=== PATIENT | male | born 1960 | race Caucasian/White ===

== ENCOUNTER 2019-12-02 07:47 | Day surgery (SDC) | payer BC ==
[~2019-12-02 07:47] MED LIST: ACETAMINOPHEN 1,000 MG/100 ML BTL IVPB ONE
[2019-12-02] MEDS ORDERED: RINGERS SOLUTION,LACTATED 1,000 ML IV ONE (08:20)
[2019-12-02] MEDS ORDERED: BUPIVACAINE 0.25% W/EPI MPF 30ML VIAL SQ ONE (09:47)
--- NOTE | 2019-12-03 08:42 | Operative Note ---
DATE OF SURGERY: 12/02/2019 SURGEON: Rg Velarde D.O. REFERRING PHYSICIAN: Asael Richardson M.D. PREOPERATIVE DIAGNOSIS: CHONDROMALACIA OF THE LEFT KNEE. 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 OPERATION: ARTHROSCOPIC CHONDROPLASTY MEDIAL FEMORAL CONDYLE, TROCHLEA AND PATELLA OF THE LEFT KNEE. DESCRIPTION: This 59-year-old male was taken to the Operating Room and placed in the supine position on the operating room table. A general anesthetic was administered, the left lower extremity was elevated and the tourniquet was inflated to 300 mmHg. The arthroscopic knee monterroso was applied, the left knee was prepped with Hibiclens and draped in the usual sterile fashion. An inferolateral portal was established with a 4 mm arthroscope and initial evaluation of the joint demonstrated normal appearance of the suprapatellar pouch, but there was a small area of Grade 2 chondromalacia on the medial facet of the patella. A Grade 2 change was noted there, this area was approximately three-quarters of a centimeter in greatest dimension. Chondroplasty was performed through an inferomedial portal to stabilize the articular cartilage there. The medial and lateral gutters were examined and found to be normal. The trochlea was examined and severe degenerative changes were present there and chondroplasty was performed to stabilize the articular cartilage, there was a very small Grade 4 lesion. The Grade 4 area was only about 1 mm in size, but severe surrounding Grade 3 changes were noted in the center of the trochlea. The width of this lesion was approximately 1.5 cm with a length of approximately 2.5 cm. The medial compartment was entered and a large flap tear of the medial femoral condyle was present and this was unstable and was removed with the arthroscopic shaver. The periphery then was stable and then not further disturbed, but it did occupy a lesion representing approximately two-thirds of the weight bearing surface of the medial femoral condyle. There is no tear in the medial meniscus. The intercondylar notch was examined and found to be normal. The lateral compartment was entered and the articular cartilage of the lateral compartment and the lateral meniscus were found to be normal. The joint was then copiously irrigated and suctioned and all areas reexamined. No additional findings were present. The joint was suctioned, instruments removed, the portals infiltrated with 0.25% Marcaine with Epinephrine, sterile dressings were applied and the patient was taken to the Recovery Room in satisfactory condition. GROSS PATHOLOGY: A very tiny Grade 4 lesion was present in the center of the trochlea with Grade 2 changes noted in the medial facet of the patella and Grade 2 changes noted in the medial femoral condyle as described above. JOB NUMBER: [id number] MTDD
== END 2019-12-02 11:15 | disposition home or self-care (01) ==
LOC: SUR 07:47
PROVIDERS: ATTEND Orthopaedic Surgery
DX: M22.42 Chondromalacia patellae, left knee (principal); E78.00 Pure hypercholesterolemia, unspecified; H40.9 Unspecified glaucoma; Z86.73 Personal history of transient ischemic attack (TIA), and cerebral infarction without residual deficits; R01.1 Cardiac murmur, unspecified
CPT/HCPCS: J7120